=== PATIENT | female | born 1995 | race Caucasian/White ===

== ENCOUNTER 2023-11-22 13:05 | Emergency (ER) | payer MEDICAID ==
[~2023-11-22] VITALS: Ht 167.6 cm; Wt 77.0 kg
[2023-11-22 13:09] VITALS: TEMP 98.2; O2SAT 98
[2023-11-22] MEDS: OXYCODONE HCL/ACETAMINOPHEN 5/325MG TABLET PO ONE (15:44)
[2023-11-22] MEDS: TETANUS, DIPHTHERIA, PERTUSSIS VAC/PF 0.5ML (>10YR OLD) IM ONE (15:45)
[2023-11-22] MEDS ORDERED: NAPR220C61 MT (16:19)
[2023-11-22] MEDS ORDERED: ACET-2708 MT (16:19)
[2023-11-22 17:22] VITALS: BP 108/75; PULSE 64; RESP 16
== END 2023-11-22 17:25 | disposition home or self-care (01) ==
LOC: ER 13:05
DX: S91.311A Laceration without foreign body, right foot, initial encounter (principal); S80.12XA Contusion of left lower leg, initial encounter; G89.11 Acute pain due to trauma; V03.10XA Pedestrian on foot injured in collision with car, pick-up truck or van in traffic accident, initial encounter; Y93.01 Activity, walking, marching and hiking; Y92.89 Other specified places as the place of occurrence of the external cause; Y99.8 Other external cause status
CPT/HCPCS: 73564; 73590; 73630; 70450; 73700; 90715; 29505; 90471; 99285; Z7610 ×3

== ENCOUNTER 2023-12-29 11:08 | Emergency (ER) | payer SELFPAY ==
[~2023-12-29] VITALS: Ht 165.1 cm; Wt 84.0 kg
[~2023-12-29 11:08] MED LIST: ACET-2708 MT; NAPR220C61 MT
[2023-12-29 11:21] VITALS: O2SAT 98
[2023-12-29] MEDS ORDERED: SULF1TAB48 MT (13:00)
[2023-12-29] MEDS ORDERED: CEPH500T MT (13:00)
[2023-12-29 13:30] VITALS: BP 112/71; PULSE 74; RESP 18; TEMP 98.4
== END 2023-12-29 14:52 | disposition home or self-care (01) ==
LOC: ER 11:08
DX: L03.90 Cellulitis, unspecified (principal)
CPT/HCPCS: 99281; 99283